=== PATIENT | female | born 1990 | race Two or more races ===

== ENCOUNTER 2022-10-23 11:32 | Emergency (ER) | payer OTHER ==
[~2022-10-23] VITALS: Ht 157.5 cm; Wt 44.5 kg
[~2022-10-23 11:32] MED LIST: PEPCID20 MG PO
== END 2022-10-23 20:24 | disposition home or self-care (01) ==
LOC: ER 11:32
DX: K29.70 Gastritis, unspecified, without bleeding (principal)

== ENCOUNTER 2025-02-28 15:32 | Emergency (ER) | payer OTHER ==
[~2025-02-28] VITALS: Ht 162.6 cm; Wt 47.6 kg
[2025-02-28] MEDS ORDERED: 0.9 % SODIUM CHLORIDE 1,000 ML IV STA (18:22)
[2025-02-28] MEDS ORDERED: FAMOtidine 10 MG/ML (4ML VIAL) IV PUSH STA (18:23)
[2025-02-28] MEDS ORDERED: ONDANSETRON HCL 2 MG/ML VIAL IV STA (18:23)
[2025-02-28] MEDS ORDERED: HYOSCYAMINE SULFATE 0.125 MG TAB.SUBL SL ONE (18:30)
[2025-02-28 19:06] LABS: BASO % 0.2 % (0.1-1.2); HEMATOCRIT 37.3 % (34.1-44.9); HEMOGLOBIN 12.5 g/dL (11.2-15.7); LYMPH # 0.83 (1.18-3.74); LYMPH % 5.2 % (19.3-53.1); MEAN CORPUSCULAR HEMOGLOBIN 28.6 pg (25.6-32.2); MONO # 0.41 (0.24-0.82); MONO % 2.6 % (4.7-12.5); NEUT # 14.71 (1.56-6.13); NEUT % 91.6 % (34.0-71.1); PLATELET COUNT 273 K/uL (163-369); RED BLOOD COUNT 4.37 M/uL (3.93-5.22); RED CELL DISTRIBUTION WIDTH 12.5 % (11.6-14.4)
[2025-02-28 19:45] LABS: ALBUMIN 3.7 gm/dL (3.4-5.0); BILIRUBIN TOTAL 0.53 mg/dL (0.3-1.2); CALCIUM 9.3 mg/dL (8.5-10.1); CREATININE SERUM 0.72 mg/dL (0.55-1.02); GFR 93.87; GLOBULINA 4.5 G/DL (2.4-3.5); POTASSIUM 3.41 mEq/L (3.5-5.1); TOTAL PROTEIN 8.2 gm/dL (6.4-8.2)
== END 2025-02-28 21:26 | disposition home or self-care (01) ==
LOC: ER 15:32
DX: K52.89 Other specified noninfective gastroenteritis and colitis (principal)